=== PATIENT | male | born 1945 | race Caucasian/White ===

== ENCOUNTER 2016-12-26 04:08 | Inpatient (IN) | payer OTHER, MEDICARE ==
[~2016-12-26] VITALS: Ht 182.9 cm; Wt 104.2 kg
[~2016-12-26 04:08] MED LIST: BENICAR20 MG PO; COUMADIN,JANTOVE6 MG PO; CRESTOR5 MG PO; FLEXERIL10 MG PO; JANUVIA25 M1 PO; METFORMIN HCL1000 MG PO; NAPROSYN375 MG PO; NOVOLOG100 UNIT/3 SQ; ULTRAM50 MG PO; ZETIA
[2016-12-26 04:19] LABS: CREATININE 1.5 mg/dL (0.6-1.3); POTASSIUM 3.7 mEq/L (3.7-5.4)
[2016-12-26 04:23] LABS: EOSINOPHIL (%) 3.1 % (0-5); EOSINOPHIL COUNT 0.2 K/uL (0-0.3); HEMATOCRIT 42.1 % (38.0-50.0); IMMATURE GRANULOCYTE (%) 1.1 % (0.0-0.7); IMMATURE GRANULOCYTE COUNT 0.1 K/uL; INSTRUMENT ABS NEUTROPHIL CT 2.6 K/uL; LYMPHOCYTE COUNT 2.3 K/uL (1.0-2.8); MCH 27.2 PG (29.0-34.0); MCHC 32.8 G/DL (30.0-36.0); MEAN PLAT.VOLUME 10.6 uM^3 (9.0-12.4); MONOCYTE (%) 5.7 % (3-12); MONOCYTE COUNT 0.3 K/uL (0-0.8); NEUTROPHIL (%) 47.3 % (45-76); NEUTROPHIL COUNT 2.6 K/uL (1.8-6.4); PLATELET COUNT 129 K/uL (156-360); RBC DIS.WIDTH-CV 13.9 % (11.8-14.6); RBC DIS.WIDTH-SD 41.8 % (39-53); RED BLOOD COUNT 5.07 M/uL (4.00-5.50); WHITE BLOOD COUNT 5.5 K/uL (4.1-10.2)
[2016-12-26 04:31] LABS: CHLORIDE 109 mEq/L (99-109); POTASSIUM 3.7 mEq/L (3.7-5.4); SODIUM 140 mEq/L (136-147)
[2016-12-26 04:32] LABS: INTER. NORMALIZED RATIO 2.7; MAGNESIUM 1.8 mg/dL (1.3-2.7); PROTHROMBIN TIME 28.4 (9.2-11.2); PTT 36.9 (25-32)
[2016-12-26 04:33] LABS: GLUCOSE 158 mg/dL (70-99)
[2016-12-26 04:35] LABS: ANION GAP 8 MEQ/L (2-14); TOTAL BILIRUBIN 0.4 mg/dL (0.0-1.0)
[2016-12-26 04:37] LABS: ALKALINE PHOSPHATASE 41 IU/L (3-129); GFR ESTIMATE (CALCULATED) 43 mL/min/
[2016-12-26 04:38] LABS: UREA NITROGEN (BUN) 30 mg/dL (9-23)
[2016-12-26 04:47] LABS: TROP-I INTERPRETATION NEGATIVE; TROPONIN-I 0.08 ng/mL (0.0-0.30)
[2016-12-26] MEDS ORDERED: COREG6.25 M1 PO (06:07)
[2016-12-26] MEDS ORDERED: DIGOX125 MCG PO (06:08)
[2016-12-26] MEDS ORDERED: IRBESARTAN300 MG PO (06:09)
[2016-12-26] MEDS ORDERED: FENOFIBRATE145 M1 PO (06:09)
[2016-12-26] MEDS ORDERED: TOUJEO SOL300 UNIT/1 SC (06:14)
[2016-12-26] MEDS ORDERED: HUMALOG100 UNIT/2 SC ×3 (06:15→06:16)
[2016-12-26 08:23] LABS: DIGOXIN 0.3 ng/mL (0.8-2.0)
[2016-12-26 08:29] LABS: POINT-OF-CARE METER ID UU13113702
[2016-12-26] MEDS ORDERED: CRESTOR10 MG PO (09:03)
[2016-12-26] MEDS ORDERED: COUMADIN6 MG PO (09:04)
[2016-12-26] MEDS ORDERED: FLONASE16 G1 BOTH NARES (09:04)
[2016-12-26 10:44] LABS: TROP-I INTERPRETATION INDETERMINATE; TROPONIN-I 0.31 ng/mL (0.0-0.30)
[2016-12-26 11:44] LABS: POINT-OF-CARE METER ID UU13113702
[2016-12-26 12:09] LABS: HDL CHOLESTEROL 25 MG/DL (Desirable>=40); LDL CHOLESTEROL 71 mg/dL (Desirable<100); NON-HDL CHOLESTEROL 97 mg/dL (Desirable<160); TOTAL CHOLESTEROL 122 mg/dL (Desirable<200); TRIGLYCERIDES 128 MG/DL (Normal: <150)
[2016-12-26 16:48] LABS: TROP-I INTERPRETATION INDETERMINATE; TROPONIN-I 0.46 ng/mL (0.0-0.30)
[2016-12-26 17:49] LABS: POINT-OF-CARE METER ID UU13113702
[2016-12-26 20:47] VITALS: BP 137/80
[2016-12-27] VITALS (11 sets, daily range): BP systolic 121–151; BP diastolic 66–88
[2016-12-27 04:54] LABS: EOSINOPHIL (%) 2.7 % (0-5); EOSINOPHIL COUNT 0.2 K/uL (0-0.3); IMMATURE GRANULOCYTE (%) 0.4 % (0.0-0.7); INSTRUMENT ABS NEUTROPHIL CT 5.7 K/uL; LYMPHOCYTE COUNT 2.1 K/uL (1.0-2.8); MCH 27.3 PG (29.0-34.0); MCHC 32.7 G/DL (30.0-36.0); MCV 83.3 FL (86-99); MEAN PLAT.VOLUME 10.5 uM^3 (9.0-12.4); MONOCYTE (%) 8.8 % (3-12); MONOCYTE COUNT 0.8 K/uL (0-0.8); NEUTROPHIL (%) 64.3 % (45-76); NEUTROPHIL COUNT 5.7 K/uL (1.8-6.4); PLATELET COUNT 134 K/uL (156-360); RBC DIS.WIDTH-CV 13.9 % (11.8-14.6); RBC DIS.WIDTH-SD 42.3 % (39-53); RED BLOOD COUNT 4.44 M/uL (4.00-5.50); WHITE BLOOD COUNT 8.9 K/uL (4.1-10.2)
[2016-12-27 05:21] LABS: CHLORIDE 108 mEq/L (99-109); POTASSIUM 3.7 mEq/L (3.7-5.4); SODIUM 142 mEq/L (136-147)
[2016-12-27 05:24] LABS: ANION GAP 7 MEQ/L (2-14); GLUCOSE 69 mg/dL (70-99)
[2016-12-27 05:25] LABS: TOTAL BILIRUBIN 0.4 mg/dL (0.0-1.0)
[2016-12-27 05:27] LABS: ALKALINE PHOSPHATASE 24 IU/L (3-129); GFR ESTIMATE (CALCULATED) 49 mL/min/
[2016-12-27 05:28] LABS: INTER. NORMALIZED RATIO 2.7; PROTHROMBIN TIME 28.2 (9.2-11.2); UREA NITROGEN (BUN) 23 mg/dL (9-23)
[2016-12-27 06:06] LABS: POINT-OF-CARE METER ID UU13113781
[2016-12-27 08:27] LABS: POINT-OF-CARE METER ID UU13113781
[2016-12-27 11:08] LABS: POINT-OF-CARE METER ID UU13113781
[2016-12-27 11:41] LABS: POINT-OF-CARE METER ID UU13113781
[2016-12-27 16:43] LABS: POINT-OF-CARE METER ID UU13113781
[2016-12-27 20:53] LABS: POINT-OF-CARE METER ID UU13113781
[2016-12-28 05:18] VITALS: BP 116/53
[2016-12-28 06:39] LABS: ANION GAP 11 MEQ/L (2-14); CHLORIDE 101 MEQ/L (99-109); GFR ESTIMATE (CALCULATED) 43 mL/min/; MAGNESIUM 1.4 mg/dl (1.3-2.7); POTASSIUM 3.8 MEQ/L (3.7-5.4); SAMPLE HEMOLYSIS CHECK 0; SAMPLE ICTERIC CHECK 0; SAMPLE LIPEMIA CHECK 0; SODIUM 137 MEQ/L (136-147); UREA NITROGEN (BUN) 23 mg/dL (9-23)
[2016-12-28 06:40] LABS: GLUCOSE 111 mg/dL (70-99)
[2016-12-28 06:42] LABS: INTER. NORMALIZED RATIO 1.8; PROTHROMBIN TIME 18.2 (9.2-11.2)
[2016-12-28 07:15] VITALS: BP 139/72
[2016-12-28 11:46] VITALS: BP 120/64
[2016-12-28] MEDS ORDERED: LOVENOX100 MG/1 M SC ×2 (11:52→12:14)
[2016-12-28 12:19] LABS: POINT-OF-CARE METER ID UU13113781
== END 2016-12-28 13:54 | disposition home or self-care (01) | DRG 287 ==
LOC: EME → EDBD 04:08 → EME 04:08 → 4EAST 05:04 → EDOF 05:04 → 4EAST 20:10
PROVIDERS: Emergency Medicine; Hospitalist; Internal Medicine; Internal Medicine Cardiovascular Disease; Physician Assistant Medical
PROC: B2111ZZ Fluoroscopy of Multiple Coronary Arteries using Low Osmolar Contrast (ICD-10-PCS; principal; 2016-12-27)
PROC: 4A023N7 Measurement of Cardiac Sampling and Pressure, Left Heart, Percutaneous Approach (ICD-10-PCS; principal; 2016-12-27)
PROC: 30233K1 Transfusion of Nonautologous Frozen Plasma into Peripheral Vein, Percutaneous Approach (ICD-10-PCS; 2016-12-27)
DX: I47.2 Ventricular tachycardia (principal); I42.9 Cardiomyopathy, unspecified; I25.10 Atherosclerotic heart disease of native coronary artery without angina pectoris; I77.810 Thoracic aortic ectasia; E87.6 Hypokalemia; E78.5 Hyperlipidemia, unspecified; E11.22 Type 2 diabetes mellitus with diabetic chronic kidney disease; I12.9 Hypertensive chronic kidney disease with stage 1 through stage 4 chronic kidney disease, or unspecified chronic kidney disease; N18.3 Chronic kidney disease, stage 3 (moderate); E83.42 Hypomagnesemia; E11.65 Type 2 diabetes mellitus with hyperglycemia; I48.0 Paroxysmal atrial fibrillation; I87.2 Venous insufficiency (chronic) (peripheral); E66.9 Obesity, unspecified; K21.9 Gastro-esophageal reflux disease without esophagitis; R79.89 Other specified abnormal findings of blood chemistry; Z95.2 Presence of prosthetic heart valve; Z79.01 Long term (current) use of anticoagulants; Z87.891 Personal history of nicotine dependence; Z79.4 Long term (current) use of insulin; Z68.32 Body mass index [BMI] 32.0-32.9, adult
CPT/HCPCS: 71010; 80047; 80048; 80053; 80061; 80162; 81003; 82948; 83605; 83735; 83880; 84443; 84484; 85025; 85610; 85730; 86900; 86901; 93005; 94799; 99281; 99285; C1769; C1887; J0282; J1644; J1650; J1815; J1940; J2250; J3010; J3480; J7030; P9017

== ENCOUNTER 2017-06-27 02:17 | Inpatient (IN) | payer OTHER, MEDICARE ==
[~2017-06-27] VITALS: Ht 182.9 cm; Wt 103.5 kg
[~2017-06-27 02:17] MED LIST changes: +COREG6.25 M1 PO; +COUMADIN6 MG PO; +CRESTOR10 MG PO; +DIGOX125 MCG PO; +FENOFIBRATE145 M1 PO; +FLONASE16 G1 BOTH NARES; +HUMALOG100 UNIT/2 SC; +IRBESARTAN300 MG PO; +LOVENOX100 MG/1 M SC; +TOUJEO SOL300 UNIT/1 SC
[2017-06-27 02:51] LABS: BASOPHIL COUNT 0.1 K/uL (0-0.1); EOSINOPHIL (%) 2.2 % (0-5); EOSINOPHIL COUNT 0.2 K/uL (0-0.3); HEMATOCRIT 40.1 % (38.0-50.0); IMMATURE GRANULOCYTE (%) 0.3 % (0.0-0.7); INSTRUMENT ABS NEUTROPHIL CT 7.1 K/uL; LYMPHOCYTE COUNT 2.5 K/uL (1.0-2.8); MCH 26.4 PG (29.0-34.0); MCHC 32.4 G/DL (30.0-36.0); MCV 81.5 FL (86-99); MEAN PLAT.VOLUME 11.2 uM^3 (9.0-12.4); MONOCYTE (%) 7.3 % (3-12); MONOCYTE COUNT 0.8 K/uL (0-0.8); NEUTROPHIL (%) 66.4 % (45-76); NEUTROPHIL COUNT 7.1 K/uL (1.8-6.4); PLATELET COUNT 141 K/uL (156-360); RBC DIS.WIDTH-CV 14.8 % (11.8-14.6); RBC DIS.WIDTH-SD 43.8 % (39-53); RED BLOOD COUNT 4.92 M/uL (4.00-5.50); WHITE BLOOD COUNT 10.7 K/uL (4.1-10.2)
[2017-06-27 03:03] LABS: INTER. NORMALIZED RATIO 2.9; PROTHROMBIN TIME 33.3 SEC (10.2-12.9)
[2017-06-27 03:05] LABS: PTT 40.5 SEC (25-37)
[2017-06-27 03:07] LABS: CHLORIDE 109 mEq/L (99-109); POTASSIUM 3.9 mEq/L (3.7-5.4); SODIUM 143 mEq/L (136-147)
[2017-06-27 03:08] LABS: MAGNESIUM 1.7 mg/dL (1.3-2.7)
[2017-06-27 03:10] LABS: GLUCOSE 75 mg/dL (70-99)
[2017-06-27 03:11] LABS: ANION GAP 10 MEQ/L (2-14)
[2017-06-27 03:12] LABS: TOTAL BILIRUBIN 0.8 mg/dL (0.0-1.0)
[2017-06-27 03:13] LABS: ALKALINE PHOSPHATASE 52 IU/L (3-129); TROP-I INTERPRETATION NEGATIVE; TROPONIN-I 0.13 ng/mL (0.0-0.30)
[2017-06-27 03:14] LABS: GFR ESTIMATE (CALCULATED) 53 mL/min/
[2017-06-27 03:15] LABS: UREA NITROGEN (BUN) 29 mg/dL (9-23)
[2017-06-27 03:17] LABS: CREATINE KINASE 84 IU/L (1-294); TOTAL CK 84 IU/L (1-294)
[2017-06-27 03:22] LABS: CK-MB 2.7 ng/mL (0.0-4.9)
[2017-06-27] MEDS ORDERED: CARVEDILOL6.25 MG PO (09:14)
[2017-06-27 09:25] LABS: TROP-I INTERPRETATION NEGATIVE; TROPONIN-I 0.09 ng/mL (0.0-0.30)
[2017-06-27 09:27] LABS: POINT-OF-CARE METER ID UU13113702
[2017-06-27] MEDS ORDERED: HUMALOG100 UNIT/2 SC (09:27)
[2017-06-27] MEDS ORDERED: PROCARDIA XL30 MG PO (10:53)
[2017-06-27] MEDS ORDERED: PRESERVISION A1 EAC2 PO (10:54)
[2017-06-27] MEDS ORDERED: COUMADIN1 MG PO (10:55)
[2017-06-27 12:12] LABS: POINT-OF-CARE METER ID UU13113702
[2017-06-27 13:00] LABS: ADD MIUA? YES; BILIRUBIN NEGATIVE; BLOOD MODERATE; COLOR STRAW ((YELLOW)); GLUCOSE (STRIP) NEGATIVE; KETONES NEGATIVE; LEUKOCYTES NEGATIVE; NITRITE NEGATIVE; PROTEIN (STRIP) 30; SPECIFIC GRAVITY 1.008 (1.000-1.030); UROBILINOGEN 0.2 MG/DL (0.2-1.0)
[2017-06-27 13:09] LABS: BACTERIA NONE SEEN /HPF; CALCIUM OXALATE CRYSTALS 1+ /HPF; EPITHELIAL CELLS RARE /HPF; MUCUS TRACE /LPF; UCUL ADDED? NO; WHITE BLOOD CELLS 0-5 /HPF (0-5); WHITE BLOOD CELLS CLUMP RARE /HPF (0-5)
[2017-06-27 15:32] LABS: TROP-I INTERPRETATION NEGATIVE; TROPONIN-I 0.09 ng/mL (0.0-0.30)
[2017-06-27 15:45] VITALS: BP 110/52
[2017-06-27 16:34] LABS: POINT-OF-CARE METER ID UU13113698
[2017-06-27 20:39] VITALS: BP 141/90
[2017-06-27 20:45] LABS: POINT-OF-CARE METER ID UU13113698
[2017-06-27 21:06] LABS: TROP-I INTERPRETATION NEGATIVE; TROPONIN-I 0.07 ng/mL (0.0-0.30)
[2017-06-27 23:31] VITALS: BP 115/77
[2017-06-28 04:03] VITALS: BP 117/78
[2017-06-28 05:23] LABS: INTER. NORMALIZED RATIO 3.3
[2017-06-28 05:30] LABS: EOSINOPHIL (%) 3.3 % (0-5); EOSINOPHIL COUNT 0.3 K/uL (0-0.3); IMMATURE GRANULOCYTE (%) 0.2 % (0.0-0.7); INSTRUMENT ABS NEUTROPHIL CT 4.9 K/uL; LYMPHOCYTE COUNT 2.6 K/uL (1.0-2.8); MCH 25.8 PG (29.0-34.0); MCHC 31.6 G/DL (30.0-36.0); MCV 81.7 FL (86-99); MEAN PLAT.VOLUME 11.2 uM^3 (9.0-12.4); MONOCYTE (%) 7.7 % (3-12); MONOCYTE COUNT 0.7 K/uL (0-0.8); NEUTROPHIL (%) 58.1 % (45-76); NEUTROPHIL COUNT 4.9 K/uL (1.8-6.4); PLATELET COUNT 139 K/uL (156-360); RBC DIS.WIDTH-CV 14.8 % (11.8-14.6); RED BLOOD COUNT 4.65 M/uL (4.00-5.50); WHITE BLOOD COUNT 8.4 K/uL (4.1-10.2)
[2017-06-28 05:43] LABS: ALKALINE PHOSPHATASE 38 IU/L (3-129); ANION GAP 8 MEQ/L (2-14); CHLORIDE 103 MEQ/L (99-109); GFR ESTIMATE (CALCULATED) 46 mL/min/; GLUCOSE 87 mg/dL (70-99); POTASSIUM 3.6 MEQ/L (3.7-5.4); SAMPLE HEMOLYSIS CHECK 0; SAMPLE ICTERIC CHECK 0; SAMPLE LIPEMIA CHECK 0; SODIUM 140 MEQ/L (136-147); TOTAL BILIRUBIN 0.8 MG/DL (0.0-1.0); UREA NITROGEN (BUN) 33 mg/dL (9-23)
[2017-06-28 07:50] VITALS: BP 145/87
[2017-06-28 07:57] LABS: POINT-OF-CARE METER ID UU13113698
[2017-06-28 11:08] LABS: POINT-OF-CARE METER ID UU13113698
[2017-06-28 11:46] VITALS: BP 127/63
[2017-06-28 16:50] LABS: POINT-OF-CARE METER ID UU13113698
[2017-06-28 16:52] VITALS: BP 125/70
[2017-06-28 20:42] LABS: POINT-OF-CARE METER ID UU13113698
[2017-06-28 20:53] VITALS: BP 125/82
[2017-06-28 23:31] VITALS: BP 104/82
[2017-06-29 04:29] VITALS: BP 135/87
[2017-06-29 05:49] LABS: INTER. NORMALIZED RATIO 3.1; PROTHROMBIN TIME 35.9 SEC (10.2-12.9)
[2017-06-29 08:10] VITALS: BP 138/80
[2017-06-29 08:14] LABS: POINT-OF-CARE METER ID UU14314088; POINT-OF-CARE USER ID ENVKC36
[2017-06-29 11:52] LABS: POINT-OF-CARE METER ID UU14314088; POINT-OF-CARE USER ID ENVKC36
[2017-06-29 12:28] VITALS: BP 143/90
[2017-06-29 15:42] VITALS: BP 139/90
[2017-06-29 16:35] LABS: POINT-OF-CARE METER ID UU14174216; POINT-OF-CARE USER ID ENVKC36
[2017-06-29 20:15] VITALS: BP 126/77
[2017-06-29 22:00] LABS: POINT-OF-CARE METER ID UU13113781
[2017-06-29 22:20] LABS: POINT-OF-CARE METER ID UU13113781
[2017-06-29 23:49] VITALS: BP 118/73
[2017-06-30 00:01] LABS: POINT-OF-CARE METER ID UU13113698
[2017-06-30 01:26] LABS: POINT-OF-CARE METER ID UU13113698
[2017-06-30 04:08] VITALS: BP 131/87
[2017-06-30 05:54] LABS: INTER. NORMALIZED RATIO 2.3; PROTHROMBIN TIME 26.5 SEC (10.2-12.9)
[2017-06-30 08:03] LABS: POINT-OF-CARE METER ID UU13113781; POINT-OF-CARE USER ID ENVKC36
[2017-06-30 08:10] VITALS: BP 139/89
[2017-06-30 09:40] LABS: ANION GAP 9 MEQ/L (2-14); CHLORIDE 104 MEQ/L (99-109); GFR ESTIMATE (CALCULATED) 49 mL/min/; POTASSIUM 4.2 MEQ/L (3.7-5.4); SAMPLE HEMOLYSIS CHECK 0; SAMPLE ICTERIC CHECK 0; SAMPLE LIPEMIA CHECK 0; SODIUM 141 MEQ/L (136-147); UREA NITROGEN (BUN) 29 mg/dL (9-23)
[2017-06-30 09:45] LABS: GLUCOSE 144 mg/dL (70-99)
[2017-06-30 10:51] VITALS: BP 97/66
[2017-06-30 11:17] VITALS: BP 134/95
[2017-06-30 11:42] LABS: POINT-OF-CARE METER ID UU13113698; POINT-OF-CARE USER ID ENVKC36
[2017-06-30 13:52] VITALS: BP 122/80
[2017-06-30 15:14] VITALS: BP 131/94
[2017-06-30 16:32] LABS: POINT-OF-CARE METER ID UU13113781; POINT-OF-CARE USER ID ENVKC36
== END 2017-06-30 18:42 | disposition short-term general hospital (02) | DRG 291 ==
LOC: EME 02:17 → EDOF 05:18 → ENRESERV 05:21 → 4EAST 15:55
PROVIDERS: Emergency Medicine; Hospitalist
DX: I13.0 Hypertensive heart and chronic kidney disease with heart failure and stage 1 through stage 4 chronic kidney disease, or unspecified chronic kidney disease (principal); I50.33 Acute on chronic diastolic (congestive) heart failure; E11.22 Type 2 diabetes mellitus with diabetic chronic kidney disease; N18.3 Chronic kidney disease, stage 3 (moderate); J96.01 Acute respiratory failure with hypoxia; J18.9 Pneumonia, unspecified organism; J44.0 Chronic obstructive pulmonary disease with (acute) lower respiratory infection; J44.1 Chronic obstructive pulmonary disease with (acute) exacerbation; I71.6 Thoracoabdominal aortic aneurysm, without rupture; I48.0 Paroxysmal atrial fibrillation; I47.2 Ventricular tachycardia; I47.1 Supraventricular tachycardia; I42.9 Cardiomyopathy, unspecified; I95.9 Hypotension, unspecified; I25.10 Atherosclerotic heart disease of native coronary artery without angina pectoris; E78.5 Hyperlipidemia, unspecified; J33.9 Nasal polyp, unspecified; K21.9 Gastro-esophageal reflux disease without esophagitis; K59.00 Constipation, unspecified; R00.1 Bradycardia, unspecified; R21 Rash and other nonspecific skin eruption; E66.9 Obesity, unspecified; Z68.30 Body mass index [BMI] 30.0-30.9, adult; Z79.01 Long term (current) use of anticoagulants; Z79.4 Long term (current) use of insulin; Z80.42 Family history of malignant neoplasm of prostate; Z83.3 Family history of diabetes mellitus; Z87.891 Personal history of nicotine dependence; Z95.2 Presence of prosthetic heart valve
CPT/HCPCS: 71010; 71250; 80048; 80053; 81003; 82550; 82553; 82948; 83735; 83880; 84484; 85025; 85610; 85730; 87502; 93005; 94640; 94640 76; 99202; 99281; 99285; J0456; J0696; J1815; J1940; J3475; J7030; J7050

== ENCOUNTER 2017-07-31 07:06 | Inpatient (IN) | payer OTHER, MEDICARE ==
[~2017-07-31] VITALS: Ht 182.9 cm; Wt 108.9 kg
[2017-07-31] VITALS (15 sets, daily range): BP systolic 82–121; BP diastolic 42–81
[~2017-07-31 07:06] MED LIST changes: +CARVEDILOL6.25 MG PO; +COUMADIN1 MG PO; +PRESERVISION A1 EAC2 PO; +PROCARDIA XL30 MG PO
[2017-07-31 08:46] LABS: HEMATOCRIT 18.8 % (38.0-50.0); HEMOGLOBIN 5.6 G/DL (12.5-16.6); MCH 27.1 PG (29.0-34.0); MCHC 29.8 G/DL (30.0-36.0); MCV 90.8 FL (86-99); NRBC (%) 0.3 /100 WBC (0-0); PLATELET COUNT 254 K/uL (156-360); RBC DIS.WIDTH-CV 17.5 % (11.8-14.6); RBC DIS.WIDTH-SD 55.8 % (39-53); RED BLOOD COUNT 2.07 M/uL (4.00-5.50); WHITE BLOOD COUNT 11.2 K/uL (4.1-10.2)
[2017-07-31 08:52] LABS: CHLORIDE 109 mEq/L (99-109); POTASSIUM 5.9 mEq/L (3.7-5.4); SODIUM 140 mEq/L (136-147)
[2017-07-31 08:54] LABS: GLUCOSE 207 mg/dL (70-99)
[2017-07-31 08:58] LABS: CREATININE 1.7 mg/dL (0.6-1.3); GFR ESTIMATE (CALCULATED) 43 mL/min/ (58.99-99999)
[2017-07-31 08:59] LABS: UREA NITROGEN (BUN) 54 mg/dL (9-23)
[2017-07-31 09:13] LABS: INTER. NORMALIZED RATIO 5.7
[2017-07-31] MEDS ORDERED: ACETAMINOPHEN500 MG PO (09:55)
[2017-07-31] MEDS ORDERED: ASPIR 8181 M1 PO (09:56)
[2017-07-31] MEDS ORDERED: CARVEDILOL6.25 MG PO (09:56)
[2017-07-31] MEDS ORDERED: OXAYDO5 MG PO (09:57)
[2017-07-31] MEDS ORDERED: DAILY VITE1 EAC1 PO (09:57)
[2017-07-31] MEDS ORDERED: COUMADIN3 MG PO (09:58)
[2017-07-31] MEDS ORDERED: CRESTOR10 MG PO (09:58)
[2017-07-31 15:23] LABS: APPEARANCE CLOUDY ((CLEAR)); BILIRUBIN NEGATIVE; BLOOD MODERATE; COLOR YELLOW ((YELLOW)); GLUCOSE (STRIP) NEGATIVE; KETONES NEGATIVE; LEUKOCYTES MODERATE; NITRITE NEGATIVE; PROTEIN (STRIP) 30; SPECIFIC GRAVITY 1.019 (1.000-1.030); UROBILINOGEN 0.2 MG/DL (0.2-1.0)
[2017-07-31 15:40] LABS: BACTERIA RARE /HPF; EPITHELIAL CELLS RARE /HPF; MUCUS TRACE /LPF; UCUL ADDED? NO; WHITE BLOOD CELLS 0-5 /HPF (0-5)
[2017-07-31 17:09] LABS: HEMATOCRIT 22.3 % (38.0-50.0); HEMOGLOBIN 7.4 G/DL (12.5-16.6); MCH 28.9 PG (29.0-34.0); MCHC 33.2 G/DL (30.0-36.0); MCV 87.1 FL (86-99); NRBC (%) 0.4 /100 WBC (0-0); PLATELET COUNT 183 K/uL (156-360); RBC DIS.WIDTH-SD 45.8 % (39-53); RED BLOOD COUNT 2.56 M/uL (4.00-5.50); WHITE BLOOD COUNT 9.7 K/uL (4.1-10.2)
[2017-08-01] VITALS (38 sets, daily range): BP systolic 83–158; BP diastolic 52–115
[2017-08-01 01:00] LABS: BASOPHIL (%) 0.1 % (0-1); EOSINOPHIL (%) 0.1 % (0-5); HEMATOCRIT 18.9 % (38.0-50.0); HEMOGLOBIN 6.2 G/DL (12.5-16.6); LYMPHOCYTE (%) 26.5 % (15-42); LYMPHOCYTE COUNT 3.7 K/uL (1.0-2.8); MCH 28.4 PG (29.0-34.0); MCHC 32.8 G/DL (30.0-36.0); MCV 86.7 FL (86-99); MONOCYTE (%) 9.1 % (3-12); MONOCYTE COUNT 1.3 K/uL (0-0.8); NEUTROPHIL (%) 63.2 % (45-76); NEUTROPHIL COUNT 8.9 K/uL (1.8-6.4); NRBC (%) 0.6 /100 WBC (0-0); PLATELET COUNT 193 K/uL (156-360); RBC DIS.WIDTH-CV 15.9 % (11.8-14.6); RED BLOOD COUNT 2.18 M/uL (4.00-5.50); WHITE BLOOD COUNT 14.1 K/uL (4.1-10.2)
[2017-08-01 01:02] LABS: INTER. NORMALIZED RATIO 3.7
[2017-08-01 01:04] LABS: PTT 33.4 SEC (25-37)
[2017-08-01 01:18] LABS: CHLORIDE 108 mEq/L (99-109)
[2017-08-01 01:19] LABS: SODIUM 140 mEq/L (136-147)
[2017-08-01 01:20] LABS: GLUCOSE 247 mg/dL (70-99)
[2017-08-01 01:24] LABS: GFR ESTIMATE (CALCULATED) 26 mL/min/ (58.99-99999)
[2017-08-01 01:25] LABS: UREA NITROGEN (BUN) 80 mg/dL (9-23)
[2017-08-01 01:30] LABS: CREATININE 2.6 mg/dL (0.6-1.3)
[2017-08-01 12:35] LABS: BASOPHIL (%) 0.2 % (0-1); EOSINOPHIL (%) 0.4 % (0-5); EOSINOPHIL COUNT 0.1 K/uL (0-0.3); HEMATOCRIT 26.6 % (38.0-50.0); IMMATURE GRANULOCYTE (%) 1.5 % (0.0-0.7); LYMPHOCYTE (%) 21.5 % (15-42); LYMPHOCYTE COUNT 2.9 K/uL (1.0-2.8); MCH 29.6 PG (29.0-34.0); MCHC 33.1 G/DL (30.0-36.0); MCV 89.6 FL (86-99); MONOCYTE (%) 9.1 % (3-12); MONOCYTE COUNT 1.2 K/uL (0-0.8); NEUTROPHIL (%) 67.3 % (45-76); NEUTROPHIL COUNT 9.2 K/uL (1.8-6.4); NRBC (%) 0.8 /100 WBC (0-0); PLATELET COUNT 159 K/uL (156-360); WHITE BLOOD COUNT 13.6 K/uL (4.1-10.2)
[2017-08-01 12:39] LABS: HEMOGLOBIN 8.8 G/DL (12.5-16.6); RED BLOOD COUNT 2.97 M/uL (4.00-5.50)
[2017-08-01 12:44] LABS: MAGNESIUM 1.4 mg/dl (1.3-2.7); PHOSPHORUS 4.7 mg/dL (2.5-4.9)
[2017-08-01 16:57] LABS: INTER. NORMALIZED RATIO 2.6
[2017-08-01 18:09] LABS: HEMATOCRIT 26.1 % (38.0-50.0); HEMOGLOBIN 8.6 G/DL (12.5-16.6); MCH 29.3 PG (29.0-34.0); MCV 88.8 FL (86-99); NRBC (%) 1.2 /100 WBC (0-0); PLATELET COUNT 158 K/uL (156-360); RBC DIS.WIDTH-CV 15.9 % (11.8-14.6); RBC DIS.WIDTH-SD 47.7 % (39-53); RED BLOOD COUNT 2.94 M/uL (4.00-5.50); WHITE BLOOD COUNT 13.7 K/uL (4.1-10.2)
[2017-08-02] VITALS (22 sets, daily range): BP systolic 97–139; BP diastolic 55–96
[2017-08-02 00:50] LABS: HEMATOCRIT 24.3 % (38.0-50.0); MCH 29.6 PG (29.0-34.0); MCHC 32.9 G/DL (30.0-36.0); NRBC (%) 1.4 /100 WBC (0-0); PLATELET COUNT 123 K/uL (156-360); RBC DIS.WIDTH-CV 17.2 % (11.8-14.6); RBC DIS.WIDTH-SD 49.1 % (39-53); WHITE BLOOD COUNT 10.8 K/uL (4.1-10.2)
[2017-08-02 06:16] LABS: INTER. NORMALIZED RATIO 2.2
[2017-08-02 06:19] LABS: PTT 31.4 SEC (25-37)
[2017-08-02 06:27] LABS: CHLORIDE 105 MEQ/L (99-109); GLUCOSE 148 mg/dL (70-99); POTASSIUM 4.8 MEQ/L (3.7-5.4); SODIUM 139 MEQ/L (136-147); UREA NITROGEN (BUN) 69 mg/dL (9-23)
[2017-08-02 06:28] LABS: GFR ESTIMATE (CALCULATED) 35 mL/min/ (58.99-99999)
[2017-08-02 06:45] LABS: BASOPHIL (%) 0.5 % (0-1); BASOPHIL COUNT 0.1 K/uL (0-0.1); EOSINOPHIL (%) 2.9 % (0-5); EOSINOPHIL COUNT 0.3 K/uL (0-0.3); HEMATOCRIT 25.9 % (38.0-50.0); HEMOGLOBIN 8.2 G/DL (12.5-16.6); IMMATURE GRANULOCYTE (%) 1.9 % (0.0-0.7); LYMPHOCYTE (%) 19.3 % (15-42); MCH 29.4 PG (29.0-34.0); MCHC 31.7 G/DL (30.0-36.0); MCV 92.8 FL (86-99); MONOCYTE (%) 9.8 % (3-12); NEUTROPHIL (%) 65.6 % (45-76); NEUTROPHIL COUNT 6.7 K/uL (1.8-6.4); NRBC (%) 1.8 /100 WBC (0-0); PLATELET COUNT 140 K/uL (156-360); RBC DIS.WIDTH-CV 17.5 % (11.8-14.6); RBC DIS.WIDTH-SD 51.7 % (39-53); RED BLOOD COUNT 2.79 M/uL (4.00-5.50); WHITE BLOOD COUNT 10.3 K/uL (4.1-10.2)
[2017-08-02 09:58] LABS: HEMATOCRIT 25.8 % (38.0-50.0); HEMOGLOBIN 8.2 G/DL (12.5-16.6); MCH 29.5 PG (29.0-34.0); MCHC 31.8 G/DL (30.0-36.0); MCV 92.8 FL (86-99); NRBC (%) 1.9 /100 WBC (0-0); PLATELET COUNT 133 K/uL (156-360); RBC DIS.WIDTH-CV 17.2 % (11.8-14.6); RBC DIS.WIDTH-SD 51.1 % (39-53); RED BLOOD COUNT 2.78 M/uL (4.00-5.50); WHITE BLOOD COUNT 10.9 K/uL (4.1-10.2)
[2017-08-03] VITALS (21 sets, daily range): BP systolic 92–145; BP diastolic 65–108
[2017-08-03 10:11] LABS: BASOPHIL (%) 0.4 % (0-1); EOSINOPHIL (%) 4.1 % (0-5); EOSINOPHIL COUNT 0.3 K/uL (0-0.3); HEMATOCRIT 26.1 % (38.0-50.0); HEMOGLOBIN 7.9 G/DL (12.5-16.6); IMMATURE GRANULOCYTE (%) 1.4 % (0.0-0.7); LYMPHOCYTE (%) 16.3 % (15-42); LYMPHOCYTE COUNT 1.2 K/uL (1.0-2.8); MCH 29.2 PG (29.0-34.0); MCHC 30.3 G/DL (30.0-36.0); MCV 96.3 FL (86-99); MONOCYTE (%) 8.5 % (3-12); MONOCYTE COUNT 0.6 K/uL (0-0.8); NEUTROPHIL (%) 69.3 % (45-76); NEUTROPHIL COUNT 5.1 K/uL (1.8-6.4); NRBC (%) 1.6 /100 WBC (0-0); PLATELET COUNT 114 K/uL (156-360); RBC DIS.WIDTH-CV 18.9 % (11.8-14.6); RBC DIS.WIDTH-SD 52.4 % (39-53); RED BLOOD COUNT 2.71 M/uL (4.00-5.50); WHITE BLOOD COUNT 7.3 K/uL (4.1-10.2)
[2017-08-03 10:19] LABS: CHLORIDE 105 MEQ/L (99-109); CREATININE 1.6 MG/DL (0.6-1.3); GFR ESTIMATE (CALCULATED) 46 mL/min/ (58.99-99999); GLUCOSE 209 mg/dL (70-99); POTASSIUM 4.5 MEQ/L (3.7-5.4); SODIUM 140 MEQ/L (136-147); UREA NITROGEN (BUN) 51 mg/dL (9-23)
[2017-08-03 14:08] LABS: BASOPHIL (%) 0.4 % (0-1); EOSINOPHIL (%) 3.1 % (0-5); EOSINOPHIL COUNT 0.2 K/uL (0-0.3); HEMATOCRIT 27.7 % (38.0-50.0); HEMOGLOBIN 8.3 G/DL (12.5-16.6); IMMATURE GRANULOCYTE (%) 1.1 % (0.0-0.7); LYMPHOCYTE (%) 20.1 % (15-42); LYMPHOCYTE COUNT 1.5 K/uL (1.0-2.8); MCH 29.1 PG (29.0-34.0); MCV 97.2 FL (86-99); MONOCYTE (%) 7.9 % (3-12); MONOCYTE COUNT 0.6 K/uL (0-0.8); NEUTROPHIL (%) 67.4 % (45-76); NRBC (%) 1.5 /100 WBC (0-0); PLATELET COUNT 124 K/uL (156-360); RBC DIS.WIDTH-CV 18.8 % (11.8-14.6); RBC DIS.WIDTH-SD 52.5 % (39-53); RED BLOOD COUNT 2.85 M/uL (4.00-5.50); WHITE BLOOD COUNT 7.4 K/uL (4.1-10.2)
[2017-08-03 14:25] LABS: INTER. NORMALIZED RATIO 2.5
[2017-08-04] VITALS (12 sets, daily range): BP systolic 117–184; BP diastolic 69–94
[2017-08-04 00:35] LABS: INTER. NORMALIZED RATIO 2.2
[2017-08-04 08:00] LABS: BASOPHIL (%) 0.4 % (0-1); EOSINOPHIL (%) 2.6 % (0-5); EOSINOPHIL COUNT 0.2 K/uL (0-0.3); HEMATOCRIT 27.7 % (38.0-50.0); HEMOGLOBIN 8.4 G/DL (12.5-16.6); IMMATURE GRANULOCYTE (%) 0.7 % (0.0-0.7); LYMPHOCYTE (%) 17.4 % (15-42); LYMPHOCYTE COUNT 1.3 K/uL (1.0-2.8); MCH 29.6 PG (29.0-34.0); MCHC 30.3 G/DL (30.0-36.0); MCV 97.5 FL (86-99); MONOCYTE (%) 10.7 % (3-12); MONOCYTE COUNT 0.8 K/uL (0-0.8); NEUTROPHIL (%) 68.2 % (45-76); PLATELET COUNT 116 K/uL (156-360); RBC DIS.WIDTH-CV 19.6 % (11.8-14.6); RBC DIS.WIDTH-SD 52.9 % (39-53); RED BLOOD COUNT 2.84 M/uL (4.00-5.50); WHITE BLOOD COUNT 7.3 K/uL (4.1-10.2)
[2017-08-05 00:29] LABS: HEMATOCRIT 27.3 % (38.0-50.0); HEMOGLOBIN 8.4 G/DL (12.5-16.6); MCV 98.2 FL (86-99)
[2017-08-05 02:50] VITALS: BP 120/61
[2017-08-05 07:00] VITALS: BP 137/77
[2017-08-05 11:21] VITALS: BP 128/59
[2017-08-05 16:27] VITALS: BP 120/68
[2017-08-05 21:13] VITALS: BP 149/67
[2017-08-05 23:42] VITALS: BP 139/80
[2017-08-06 04:09] VITALS: BP 149/84
[2017-08-06 05:37] LABS: INTER. NORMALIZED RATIO 2.2
[2017-08-06 08:50] VITALS: BP 129/74
[2017-08-06 10:56] LABS: HEMATOCRIT 28.2 % (38.0-50.0); HEMOGLOBIN 8.5 G/DL (12.5-16.6); MCV 96.9 FL (86-99)
[2017-08-06 11:35] VITALS: BP 144/64
[2017-08-06 19:25] VITALS: BP 121/65
[2017-08-07 00:12] VITALS: BP 140/78
[2017-08-07 04:06] VITALS: BP 131/65
[2017-08-07 06:51] LABS: BILIRUBIN NEGATIVE; BLOOD LARGE; COLOR YELLOW ((YELLOW)); GLUCOSE (STRIP) NEGATIVE; KETONES NEGATIVE; LEUKOCYTES SMALL; NITRITE NEGATIVE; PROTEIN (STRIP) 100; SPECIFIC GRAVITY 1.018 (1.000-1.030); UROBILINOGEN 0.2 MG/DL (0.2-1.0)
[2017-08-07 06:52] LABS: APPEARANCE SL.HAZY ((CLEAR))
[2017-08-07 07:25] LABS: BACTERIA RARE /HPF; EPITHELIAL CELLS RARE /HPF; HYALINE CASTS 0-5 /LPF; MUCUS 1+ /LPF; RED BLOOD CELLS 30-40 /HPF (0-5); UCUL ADDED? YES; URIC ACID CRYSTALS 1+ /HPF; WHITE BLOOD CELLS 30-40 /HPF (0-5)
[2017-08-07 08:14] VITALS: BP 135/80
[2017-08-07 11:59] VITALS: BP 122/63
[2017-08-07] MEDS ORDERED: PANTOPRAZOLE SO40 MG PO (15:00)
[2017-08-07] MEDS ORDERED: DITROPAN5 MG PO (15:00)
[2017-08-07] MEDS ORDERED: DOCUSATE SODIU100 MG PO (15:00)
[2017-08-07] MEDS ORDERED: ALPRAZOLAM0.5 MG PO (15:00)
[2017-08-07 16:24] VITALS: BP 152/62
== END 2017-08-07 17:30 | disposition home health service (06) | DRG 378 ==
LOC: EME 07:06 → 4WEST 18:22 → EDOF 18:22 → 4EAST 18:22 → ENRESERV 18:26 → 4WEST 22:33 → ENRESERV 08-03 18:11 → 4EAST 08-04 01:47
PROVIDERS: Emergency Medicine; Hospitalist; Internal Medicine; Internal Medicine Cardiovascular Disease; Internal Medicine Critical Care Medicine; Internal Medicine Gastroenterology; Nurse Practitioner Adult Health; Physician Assistant; Specialist
PROC: 30233N1 Transfusion of Nonautologous Red Blood Cells into Peripheral Vein, Percutaneous Approach (ICD-10-PCS; principal; 2017-07-31)
PROC: 30233K1 Transfusion of Nonautologous Frozen Plasma into Peripheral Vein, Percutaneous Approach (ICD-10-PCS; principal; 2017-07-31)
PROC: 0DJ08ZZ Inspection of Upper Intestinal Tract, Via Natural or Artificial Opening Endoscopic (ICD-10-PCS; 2017-08-04)
DX: K92.1 Melena (principal); D62 Acute posthemorrhagic anemia; E87.5 Hyperkalemia; I95.9 Hypotension, unspecified; I12.9 Hypertensive chronic kidney disease with stage 1 through stage 4 chronic kidney disease, or unspecified chronic kidney disease; N18.3 Chronic kidney disease, stage 3 (moderate); R79.1 Abnormal coagulation profile; T45.515A Adverse effect of anticoagulants, initial encounter; K25.9 Gastric ulcer, unspecified as acute or chronic, without hemorrhage or perforation; K29.80 Duodenitis without bleeding; I48.2 Chronic atrial fibrillation; N21.0 Calculus in bladder; N32.89 Other specified disorders of bladder; E11.22 Type 2 diabetes mellitus with diabetic chronic kidney disease; E78.5 Hyperlipidemia, unspecified; I25.10 Atherosclerotic heart disease of native coronary artery without angina pectoris; I42.9 Cardiomyopathy, unspecified; I49.3 Ventricular premature depolarization; K21.9 Gastro-esophageal reflux disease without esophagitis; N40.0 Benign prostatic hyperplasia without lower urinary tract symptoms; E66.9 Obesity, unspecified; Z68.32 Body mass index [BMI] 32.0-32.9, adult; Z95.2 Presence of prosthetic heart valve; Z79.01 Long term (current) use of anticoagulants; Z79.4 Long term (current) use of insulin; Z87.442 Personal history of urinary calculi; Z87.891 Personal history of nicotine dependence
CPT/HCPCS: 71045; 74176; 80048; 81003; 82948; 83605; 83735; 84100; 85014; 85018; 85025; 85025 91; 85027; 85610; 85730; 86850; 86900; 86901; 86920; 87077; 87086; 87186; 87641; 93005; 94010; 94640; 94640 76; 94668; 94799; 99202; 99281; 99285; C9113; J1815; J2060; J2270; J2405; J2765; J7030; P9016; P9017

== ENCOUNTER 2017-09-01 11:41 | Inpatient (IN) | payer OTHER, MEDICARE ==
[~2017-09-01] VITALS: Ht 182.9 cm; Wt 104.9 kg
[~2017-09-01 11:41] MED LIST changes: +ACETAMINOPHEN500 MG PO; +ALPRAZOLAM0.5 MG PO; +ASPIR 8181 M1 PO; +COUMADIN2.5 MG PO; +DAILY VITE1 EAC1 PO; +DITROPAN5 MG PO; +DOCUSATE SODIU100 MG PO; +OXAYDO5 MG PO; +PANTOPRAZOLE SO40 MG PO
[2017-09-01 13:41] LABS: HEMATOCRIT 34.1 % (38.0-50.0); HEMOGLOBIN 10.4 G/DL (12.5-16.6); MCH 26.9 PG (29.0-34.0); MCHC 30.5 G/DL (30.0-36.0); RBC DIS.WIDTH-CV 17.2 % (11.8-14.6); RBC DIS.WIDTH-SD 55.1 % (39-53); RED BLOOD COUNT 3.87 M/uL (4.00-5.50); WHITE BLOOD COUNT 9.6 K/uL (4.1-10.2)
[2017-09-01 13:48] LABS: MCV 88.1 FL (86-99)
[2017-09-01 13:51] LABS: CHLORIDE 98 mEq/L (99-109); POTASSIUM 5.2 mEq/L (3.7-5.4); SODIUM 134 mEq/L (136-147)
[2017-09-01 13:53] LABS: GLUCOSE 135 mg/dL (70-99)
[2017-09-01 13:54] LABS: TOTAL PROTEIN 6.7 g/dL (6.4-8.3)
[2017-09-01 13:55] LABS: TOTAL BILIRUBIN 0.7 mg/dL (0.0-1.0)
[2017-09-01 13:57] LABS: ALKALINE PHOSPHATASE 72 IU/L (3-129); CREATININE 3.2 mg/dL (0.6-1.3); GFR ESTIMATE (CALCULATED) 21 mL/min/ (58.99-99999)
[2017-09-01 13:58] LABS: UREA NITROGEN (BUN) 47 mg/dL (9-23)
[2017-09-01 13:59] LABS: AST (GOT) 43 IU/L (2-34)
[2017-09-01 14:00] LABS: ALT (GPT) 26 IU/L (3-49)
[2017-09-01 14:05] LABS: PLATELET COUNT 126 K/uL (156-360)
[2017-09-01] MEDS ORDERED: COLACE100 MG PO (16:06)
[2017-09-01 16:15] LABS: INTER. NORMALIZED RATIO 2.7
[2017-09-01] MEDS ORDERED: TRAZODONE HCL50 MG PO (16:15)
[2017-09-01] MEDS ORDERED: FUROSEMIDE40 MG PO (16:16)
[2017-09-01 16:17] LABS: PTT 36.3 SEC (25-37)
[2017-09-01] MEDS ORDERED: ROSUVASTATIN CA10 MG PO (16:17)
[2017-09-01 16:24] LABS: TROP-I INTERPRETATION NEGATIVE; TROPONIN-I 0.17 ng/mL (0.0-0.30)
[2017-09-01 16:40] LABS: APPEARANCE CLOUDY ((CLEAR)); BILIRUBIN NEGATIVE; BLOOD LARGE; COLOR AMBER ((YELLOW)); GLUCOSE (STRIP) NEGATIVE; KETONES NEGATIVE; LEUKOCYTES MODERATE; NITRITE NEGATIVE; PROTEIN (STRIP) 100; SPECIFIC GRAVITY 1.021 (1.000-1.030); UROBILINOGEN 0.2 MG/DL (0.2-1.0)
[2017-09-01 17:01] LABS: EPITHELIAL CELLS NONE SEEN /HPF; MUCUS NONE SEEN /LPF
[2017-09-01 17:02] LABS: COARSE GRANULAR CASTS 0-5 /LPF; FINE GRANULAR CASTS 0-5 /LPF; RED BLOOD CELLS TNTC /HPF (0-5)
[2017-09-01 17:03] LABS: BACTERIA 1+ /HPF; UCUL ADDED? YES
[2017-09-01 17:09] VITALS: BP 143/85
[2017-09-01 19:07] VITALS: BP 125/83
[2017-09-02 00:23] VITALS: BP 155/70
[2017-09-02 00:35] LABS: TROP-I INTERPRETATION NEGATIVE; TROPONIN-I 0.15 ng/mL (0.0-0.30)
[2017-09-02 03:59] VITALS: BP 138/72
[2017-09-02 06:49] LABS: HEMOGLOBIN 9.6 G/DL (12.5-16.6); MCH 26.6 PG (29.0-34.0); MCV 88.6 FL (86-99); PLATELET COUNT 124 K/uL (156-360); RBC DIS.WIDTH-CV 17.2 % (11.8-14.6); RBC DIS.WIDTH-SD 54.7 % (39-53); RED BLOOD COUNT 3.61 M/uL (4.00-5.50); WHITE BLOOD COUNT 10.1 K/uL (4.1-10.2)
[2017-09-02 07:16] LABS: CHLORIDE 99 MEQ/L (99-109); CREATININE 3.2 MG/DL (0.6-1.3); GFR ESTIMATE (CALCULATED) 21 mL/min/ (58.99-99999); GLUCOSE 126 mg/dL (70-99); POTASSIUM 4.9 MEQ/L (3.7-5.4); SODIUM 132 MEQ/L (136-147); UREA NITROGEN (BUN) 48 mg/dL (9-23)
[2017-09-02 08:08] VITALS: BP 108/78
[2017-09-02 08:53] LABS: INTER. NORMALIZED RATIO 2.6
[2017-09-02 08:55] LABS: PTT 38.6 SEC (25-37)
[2017-09-02 10:41] LABS: HEMOGLOBIN A1c (GLYCOHEMOGLOB) 5.8 % (Below 5.7)
[2017-09-02 12:00] VITALS: BP 110/62
[2017-09-02 16:18] VITALS: BP 132/72
[2017-09-02 19:55] VITALS: BP 111/75
[2017-09-03] VITALS (8 sets, daily range): BP systolic 103–134; BP diastolic 60–83
[2017-09-03 06:32] LABS: HEMATOCRIT 31.7 % (38.0-50.0); HEMOGLOBIN 9.4 G/DL (12.5-16.6); MCHC 29.7 G/DL (30.0-36.0); MCV 87.8 FL (86-99); PLATELET COUNT 128 K/uL (156-360); RBC DIS.WIDTH-SD 54.4 % (39-53); RED BLOOD COUNT 3.61 M/uL (4.00-5.50); WHITE BLOOD COUNT 8.5 K/uL (4.1-10.2)
[2017-09-03 06:38] LABS: CHLORIDE 96 MEQ/L (99-109); CREATININE 3.1 MG/DL (0.6-1.3); GFR ESTIMATE (CALCULATED) 21 mL/min/ (58.99-99999); GLUCOSE 127 mg/dL (70-99); MAGNESIUM 1.5 mg/dl (1.3-2.7); POTASSIUM 4.4 MEQ/L (3.7-5.4); SODIUM 132 MEQ/L (136-147); UREA NITROGEN (BUN) 52 mg/dL (9-23)
[2017-09-03 06:59] LABS: BASOPHIL (%) 0.4 % (0-1); EOSINOPHIL (%) 0.4 % (0-5); IMMATURE GRANULOCYTE (%) 0.4 % (0.0-0.7); LYMPHOCYTE COUNT 1.8 K/uL (1.0-2.8); MONOCYTE (%) 8.6 % (3-12); MONOCYTE COUNT 0.7 K/uL (0-0.8); NEUTROPHIL (%) 69.2 % (45-76); NEUTROPHIL COUNT 5.9 K/uL (1.8-6.4)
[2017-09-03 07:03] LABS: INTER. NORMALIZED RATIO 2.7
[2017-09-04 04:13] VITALS: BP 120/69
[2017-09-04 06:50] LABS: INTER. NORMALIZED RATIO 1.9
[2017-09-04 06:55] LABS: BASOPHIL (%) 0.5 % (0-1); EOSINOPHIL (%) 0.8 % (0-5); EOSINOPHIL COUNT 0.1 K/uL (0-0.3); HEMATOCRIT 31.3 % (38.0-50.0); HEMOGLOBIN 9.6 G/DL (12.5-16.6); IMMATURE GRANULOCYTE (%) 0.6 % (0.0-0.7); LYMPHOCYTE (%) 23.1 % (15-42); LYMPHOCYTE COUNT 1.8 K/uL (1.0-2.8); MCH 26.8 PG (29.0-34.0); MCHC 30.7 G/DL (30.0-36.0); MCV 87.4 FL (86-99); MONOCYTE (%) 9.4 % (3-12); MONOCYTE COUNT 0.7 K/uL (0-0.8); NEUTROPHIL (%) 65.6 % (45-76); NEUTROPHIL COUNT 5.2 K/uL (1.8-6.4); PLATELET COUNT 138 K/uL (156-360); RBC DIS.WIDTH-CV 17.1 % (11.8-14.6); RBC DIS.WIDTH-SD 53.9 % (39-53); RED BLOOD COUNT 3.58 M/uL (4.00-5.50); WHITE BLOOD COUNT 7.9 K/uL (4.1-10.2)
[2017-09-04 07:11] LABS: CHLORIDE 97 MEQ/L (99-109); GFR ESTIMATE (CALCULATED) 26 mL/min/ (58.99-99999); GLUCOSE 126 mg/dL (70-99); MAGNESIUM 1.5 mg/dl (1.3-2.7); PHOSPHORUS 4.5 mg/dL (2.5-4.9); POTASSIUM 3.8 MEQ/L (3.7-5.4); SODIUM 136 MEQ/L (136-147); UREA NITROGEN (BUN) 53 mg/dL (9-23)
[2017-09-04 07:13] LABS: CREATININE 2.6 MG/DL (0.6-1.3)
[2017-09-04 07:56] VITALS: BP 127/73
[2017-09-04 11:49] VITALS: BP 134/69
[2017-09-04 16:20] LABS: HEMATOCRIT 34.7 % (38.0-50.0); HEMOGLOBIN 10.5 G/DL (12.5-16.6); MCH 26.7 PG (29.0-34.0); MCHC 30.3 G/DL (30.0-36.0); MCV 88.3 FL (86-99); PLATELET COUNT 152 K/uL (156-360); RBC DIS.WIDTH-CV 17.2 % (11.8-14.6); RBC DIS.WIDTH-SD 54.7 % (39-53); RED BLOOD COUNT 3.93 M/uL (4.00-5.50); WHITE BLOOD COUNT 8.3 K/uL (4.1-10.2)
[2017-09-04 17:43] VITALS: BP 119/86
[2017-09-04 19:33] VITALS: BP 135/81
[2017-09-05] VITALS (7 sets, daily range): BP systolic 121–158; BP diastolic 57–85
[2017-09-05 06:07] LABS: HEMATOCRIT 34.5 % (38.0-50.0); HEMOGLOBIN 10.2 G/DL (12.5-16.6); MCH 25.9 PG (29.0-34.0); MCHC 29.6 G/DL (30.0-36.0); MCV 87.6 FL (86-99); PLATELET COUNT 171 K/uL (156-360); RBC DIS.WIDTH-CV 17.1 % (11.8-14.6); RBC DIS.WIDTH-SD 54.7 % (39-53); RED BLOOD COUNT 3.94 M/uL (4.00-5.50); WHITE BLOOD COUNT 9.6 K/uL (4.1-10.2)
[2017-09-05 06:33] LABS: ALBUMIN 2.9 G/DL (3.2-4.8); ALKALINE PHOSPHATASE 54 IU/L (3-129); ALT (GPT) 21 IU/L (3-49); AST (GOT) 27 IU/L (2-34); CHLORIDE 97 MEQ/L (99-109); GFR ESTIMATE (CALCULATED) 35 mL/min/ (58.99-99999); GLUCOSE 151 mg/dL (70-99); MAGNESIUM 1.3 mg/dl (1.3-2.7); PHOSPHORUS 3.6 mg/dL (2.5-4.9); POTASSIUM 3.7 MEQ/L (3.7-5.4); SODIUM 135 MEQ/L (136-147); TOTAL BILIRUBIN 0.7 MG/DL (0.0-1.0); TOTAL PROTEIN 6.8 G/DL (6.4-8.3); UREA NITROGEN (BUN) 46 mg/dL (9-23)
[2017-09-05 07:02] LABS: BASOPHIL (%) 0.5 % (0-1); BASOPHIL COUNT 0.1 K/uL (0-0.1); EOSINOPHIL (%) 0.2 % (0-5); IMMATURE GRANULOCYTE (%) 0.7 % (0.0-0.7); LYMPHOCYTE (%) 28.5 % (15-42); LYMPHOCYTE COUNT 2.8 K/uL (1.0-2.8); MONOCYTE (%) 8.1 % (3-12); MONOCYTE COUNT 0.8 K/uL (0-0.8)
[2017-09-05 10:13] LABS: INTER. NORMALIZED RATIO 1.7
[2017-09-05 21:00] LABS: INTER. NORMALIZED RATIO 1.7
[2017-09-05 21:07] LABS: PTT 84.6 SEC (25-37)
[2017-09-06 03:48] VITALS: BP 140/94
[2017-09-06 04:06] LABS: HEMATOCRIT 32.6 % (38.0-50.0); HEMOGLOBIN 10.1 G/DL (12.5-16.6); MCH 26.4 PG (29.0-34.0); MCV 85.3 FL (86-99); PLATELET COUNT 148 K/uL (156-360); RBC DIS.WIDTH-CV 17.1 % (11.8-14.6); RBC DIS.WIDTH-SD 52.6 % (39-53); RED BLOOD COUNT 3.82 M/uL (4.00-5.50); WHITE BLOOD COUNT 8.4 K/uL (4.1-10.2)
[2017-09-06 04:15] LABS: INTER. NORMALIZED RATIO 1.5
[2017-09-06 04:20] LABS: CHLORIDE 98 mEq/L (99-109); POTASSIUM 3.6 mEq/L (3.7-5.4); SODIUM 136 mEq/L (136-147)
[2017-09-06 04:21] LABS: GLUCOSE 186 mg/dL (70-99)
[2017-09-06 04:25] LABS: CREATININE 1.8 mg/dL (0.6-1.3); GFR ESTIMATE (CALCULATED) 40 mL/min/ (58.99-99999)
[2017-09-06 04:26] LABS: UREA NITROGEN (BUN) 46 mg/dL (9-23)
[2017-09-06 05:35] LABS: ACANTHOCYTES 1+; ANISOCYTOSIS 1+; ATYPICAL LYMPHOCYTE 6.1 %; EOSINOPHIL ABS CT 0; HYPOCHROMASIA 1+; LYMPHOCYTES 17.5 % (15.0-45.0); MACROCYTES 1+; METAMYELOCYTES 0.9 %; MONOCYTES 4.4 % (0-9.0); OVALOCYTES 1+; PLAT.SUFFICIENCY ADEQUATE; POIKILOCYTOSIS 1+; POLYCHROMASIA 2+; SEG.NEUTROPHILS 71.1 % (46.0-76.0); SPHEROCYTES 1+
[2017-09-06 07:58] VITALS: BP 144/66
[2017-09-06 12:23] VITALS: BP 137/84
[2017-09-06 16:03] VITALS: BP 137/84
[2017-09-06 19:57] VITALS: BP 128/72
[2017-09-07 00:12] VITALS: BP 121/69
[2017-09-07 06:59] LABS: BASOPHIL (%) 0.4 % (0-1); EOSINOPHIL (%) 1.4 % (0-5); EOSINOPHIL COUNT 0.1 K/uL (0-0.3); HEMATOCRIT 30.7 % (38.0-50.0); HEMOGLOBIN 9.2 G/DL (12.5-16.6); IMMATURE GRANULOCYTE (%) 0.8 % (0.0-0.7); LYMPHOCYTE (%) 26.7 % (15-42); MCH 26.1 PG (29.0-34.0); MCV 87.2 FL (86-99); MONOCYTE (%) 7.9 % (3-12); MONOCYTE COUNT 0.6 K/uL (0-0.8); NEUTROPHIL (%) 62.8 % (45-76); NEUTROPHIL COUNT 4.8 K/uL (1.8-6.4); PLATELET COUNT 158 K/uL (156-360); RBC DIS.WIDTH-CV 17.2 % (11.8-14.6); RBC DIS.WIDTH-SD 54.4 % (39-53); RED BLOOD COUNT 3.52 M/uL (4.00-5.50); WHITE BLOOD COUNT 7.6 K/uL (4.1-10.2)
[2017-09-07 07:04] LABS: INTER. NORMALIZED RATIO 1.5
[2017-09-07 07:07] LABS: PTT 61.5 SEC (25-37)
[2017-09-07 07:17] VITALS: BP 148/68
[2017-09-07 07:21] LABS: CHLORIDE 98 MEQ/L (99-109); CREATININE 1.6 MG/DL (0.6-1.3); GFR ESTIMATE (CALCULATED) 46 mL/min/ (58.99-99999); GLUCOSE 186 mg/dL (70-99); MAGNESIUM 1.2 mg/dl (1.3-2.7); PHOSPHORUS 2.9 mg/dL (2.5-4.9); POTASSIUM 3.5 MEQ/L (3.7-5.4); SODIUM 139 MEQ/L (136-147); UREA NITROGEN (BUN) 38 mg/dL (9-23)
[2017-09-07 15:56] VITALS: BP 125/66
[2017-09-07 20:00] VITALS: BP 128/77
[2017-09-07 21:31] VITALS: BP 124/83
[2017-09-07 21:42] LABS: TROP-I INTERPRETATION NEGATIVE; TROPONIN-I 0.09 ng/mL (0.0-0.30)
[2017-09-07 21:46] LABS: ALBUMIN 2.9 G/DL (3.2-4.8); ALKALINE PHOSPHATASE 83 IU/L (3-129); ALT (GPT) 18 IU/L (3-49); AST (GOT) 29 IU/L (2-34); CHLORIDE 98 MEQ/L (99-109); CREATININE 1.5 MG/DL (0.6-1.3); GFR ESTIMATE (CALCULATED) 49 mL/min/ (58.99-99999); GLUCOSE 235 mg/dL (70-99); PHOSPHORUS 2.4 mg/dL (2.5-4.9); POTASSIUM 3.9 MEQ/L (3.7-5.4); SODIUM 136 MEQ/L (136-147); TOTAL PROTEIN 6.9 G/DL (6.4-8.3); UREA NITROGEN (BUN) 36 mg/dL (9-23)
[2017-09-07 22:00] LABS: MAGNESIUM 1.8 mg/dl (1.3-2.7)
[2017-09-07 22:01] LABS: TOTAL BILIRUBIN 0.5 MG/DL (0.0-1.0)
[2017-09-08] VITALS (11 sets, daily range): BP systolic 119–156; BP diastolic 71–94
[2017-09-08 05:51] LABS: BASOPHIL (%) 0.5 % (0-1); EOSINOPHIL (%) 1.7 % (0-5); EOSINOPHIL COUNT 0.1 K/uL (0-0.3); HEMATOCRIT 32.5 % (38.0-50.0); HEMOGLOBIN 9.8 G/DL (12.5-16.6); IMMATURE GRANULOCYTE (%) 0.8 % (0.0-0.7); LYMPHOCYTE (%) 23.2 % (15-42); LYMPHOCYTE COUNT 1.8 K/uL (1.0-2.8); MCH 26.4 PG (29.0-34.0); MCHC 30.2 G/DL (30.0-36.0); MCV 87.6 FL (86-99); MONOCYTE COUNT 0.6 K/uL (0-0.8); NEUTROPHIL (%) 65.8 % (45-76); PLATELET COUNT 180 K/uL (156-360); RBC DIS.WIDTH-CV 17.1 % (11.8-14.6); RBC DIS.WIDTH-SD 54.6 % (39-53); RED BLOOD COUNT 3.71 M/uL (4.00-5.50); WHITE BLOOD COUNT 7.6 K/uL (4.1-10.2)
[2017-09-08 05:57] LABS: INTER. NORMALIZED RATIO 1.6
[2017-09-08 06:00] LABS: PTT 62.9 SEC (25-37)
[2017-09-08 06:14] LABS: CHLORIDE 97 MEQ/L (99-109); CREATININE 1.5 MG/DL (0.6-1.3); GFR ESTIMATE (CALCULATED) 49 mL/min/ (58.99-99999); MAGNESIUM 1.7 mg/dl (1.3-2.7); PHOSPHORUS 2.7 mg/dL (2.5-4.9); POTASSIUM 3.6 MEQ/L (3.7-5.4); SODIUM 140 MEQ/L (136-147); UREA NITROGEN (BUN) 34 mg/dL (9-23)
[2017-09-08 06:17] LABS: GLUCOSE 115 mg/dL (70-99)
[2017-09-08 11:21] LABS: MAGNESIUM 1.6 mg/dl (1.3-2.7); PHOSPHORUS 2.7 mg/dL (2.5-4.9)
[2017-09-08 11:25] LABS: TROP-I INTERPRETATION NEGATIVE; TROPONIN-I 0.08 ng/mL (0.0-0.30)
[2017-09-09 03:50] VITALS: BP 127/83
[2017-09-09 05:54] LABS: BASOPHIL (%) 0.6 % (0-1); EOSINOPHIL (%) 1.4 % (0-5); EOSINOPHIL COUNT 0.1 K/uL (0-0.3); HEMATOCRIT 32.6 % (38.0-50.0); HEMOGLOBIN 9.5 G/DL (12.5-16.6); IMMATURE GRANULOCYTE (%) 0.9 % (0.0-0.7); LYMPHOCYTE (%) 29.7 % (15-42); LYMPHOCYTE COUNT 1.9 K/uL (1.0-2.8); MCH 25.4 PG (29.0-34.0); MCHC 29.1 G/DL (30.0-36.0); MCV 87.2 FL (86-99); MONOCYTE (%) 9.2 % (3-12); MONOCYTE COUNT 0.6 K/uL (0-0.8); NEUTROPHIL (%) 58.2 % (45-76); NEUTROPHIL COUNT 3.8 K/uL (1.8-6.4); PLATELET COUNT 198 K/uL (156-360); RBC DIS.WIDTH-CV 17.1 % (11.8-14.6); RBC DIS.WIDTH-SD 54.7 % (39-53); RED BLOOD COUNT 3.74 M/uL (4.00-5.50); WHITE BLOOD COUNT 6.5 K/uL (4.1-10.2)
[2017-09-09 06:03] LABS: INTER. NORMALIZED RATIO 1.7
[2017-09-09 06:18] LABS: CHLORIDE 96 MEQ/L (99-109); CREATININE 1.5 MG/DL (0.6-1.3); GFR ESTIMATE (CALCULATED) 49 mL/min/ (58.99-99999); GLUCOSE 117 mg/dL (70-99); POTASSIUM 3.8 MEQ/L (3.7-5.4); SODIUM 141 MEQ/L (136-147); UREA NITROGEN (BUN) 28 mg/dL (9-23)
[2017-09-09 08:00] VITALS: BP 139/81
[2017-09-09 12:10] VITALS: BP 131/70
[2017-09-09] MEDS ORDERED: TAMSULOSIN HCL0.4 MG PO (12:51)
[2017-09-09] MEDS ORDERED: SPIRONOLACTONE25 MG PO (12:52)
[2017-09-09] MEDS ORDERED: PRAVASTATIN SOD80 MG PO (12:52)
[2017-09-09] MEDS ORDERED: CARVEDILOL25 MG PO (12:52)
[2017-09-09] MEDS ORDERED: FLORASTOR250 MG PO (12:53)
[2017-09-09] MEDS ORDERED: OXAYDO5 MG PO (12:54)
[2017-09-09] MEDS ORDERED: ANUCORT-HC25 MG PR (12:54)
[2017-09-09] MEDS ORDERED: LOVENOX150 MG/1 M SC ×2 (12:59→13:22)
[2017-09-09] MEDS ORDERED: LEVEMIR100 UNIT/2 SC (12:59)
[2017-09-09] MEDS ORDERED: COUMADIN2.5 MG PO (13:11)
[2017-09-09] MEDS ORDERED: BUMEX1 MG PO (13:13)
[2017-09-09] MEDS ORDERED: AMOXICILLIN500 MG PO (13:21)
== END 2017-09-09 16:10 | disposition home health service (06) | DRG 871 ==
LOC: EME 11:41 → EDOF 15:02 → 5SOUTH 15:02 → ENRESERV 15:04 → 5SOUTH 16:57 → ENRESERV 09-08 11:11 → 4EAST 09-08 12:09
PROVIDERS: Emergency Medicine; Hospitalist; Internal Medicine; Internal Medicine Nephrology; Physician Assistant; Urology
DX: A41.81 Sepsis due to Enterococcus (principal); N13.6 Pyonephrosis; N21.0 Calculus in bladder; N17.0 Acute kidney failure with tubular necrosis; E86.0 Dehydration; I47.2 Ventricular tachycardia; E83.42 Hypomagnesemia; E87.6 Hypokalemia; R33.9 Retention of urine, unspecified; J96.10 Chronic respiratory failure, unspecified whether with hypoxia or hypercapnia; I13.0 Hypertensive heart and chronic kidney disease with heart failure and stage 1 through stage 4 chronic kidney disease, or unspecified chronic kidney disease; I50.9 Heart failure, unspecified; E11.22 Type 2 diabetes mellitus with diabetic chronic kidney disease; N18.3 Chronic kidney disease, stage 3 (moderate); I73.9 Peripheral vascular disease, unspecified; K21.9 Gastro-esophageal reflux disease without esophagitis; I42.9 Cardiomyopathy, unspecified; D64.9 Anemia, unspecified; E78.5 Hyperlipidemia, unspecified; G89.29 Other chronic pain; M54.9 Dorsalgia, unspecified; I25.10 Atherosclerotic heart disease of native coronary artery without angina pectoris; I48.2 Chronic atrial fibrillation; K59.00 Constipation, unspecified; N40.0 Benign prostatic hyperplasia without lower urinary tract symptoms; K64.4 Residual hemorrhoidal skin tags; E66.9 Obesity, unspecified; I87.2 Venous insufficiency (chronic) (peripheral); L97.909 Non-pressure chronic ulcer of unspecified part of unspecified lower leg with unspecified severity; Z79.01 Long term (current) use of anticoagulants; Z79.4 Long term (current) use of insulin; Z95.2 Presence of prosthetic heart valve; Z87.891 Personal history of nicotine dependence; Z68.31 Body mass index [BMI] 31.0-31.9, adult; Z99.81 Dependence on supplemental oxygen
CPT/HCPCS: 36415; 74018; 74176; 74420; 76000; 76770; 80048; 80048 91; 80053; 81003; 82365 90; 82550; 82948; 83036; 83605; 83735; 84100; 84484; 85025; 85027; 85610; 85730; 87040; 87077; 87086; 87186; 87502; 87801; 93005; 94799; 97530 GP; 99281; 99285; C2625; J0290; J0330; J0696; J1170; J1815; J1940; J2270; J2405; J3010; J3475; J3480; J7030; J7040; J7050

== ENCOUNTER → 2017-10-02 | Outpatient (CLI) | payer OTHER, MEDICARE ==
[~2017-10-02] MED LIST changes: +AMOXICILLIN500 MG PO; +ANUCORT-HC25 MG PR; +BUMEX1 MG PO; +CARVEDILOL25 MG PO; +COLACE100 MG PO; +FLORASTOR250 MG PO; +FUROSEMIDE40 MG PO; +LEVEMIR100 UNIT/2 SC; +LOVENOX150 MG/1 M SC; +PRAVASTATIN SOD80 MG PO; +ROSUVASTATIN CA10 MG PO; +SPIRONOLACTONE25 MG PO; +TAMSULOSIN HCL0.4 MG PO; +TRAZODONE HCL50 MG PO
== END | disposition home or self-care (01) ==
DX: R13.10 Dysphagia, unspecified (principal); K21.9 Gastro-esophageal reflux disease without esophagitis
CPT/HCPCS: 92611 GN; G8996 GN; G8997 GN; G8998 GN